=== PATIENT | female | born 1975 | race Two or more races ===

== ENCOUNTER 2023-10-27 18:17 | Inpatient (IN) | payer OTHER ==
[2023-10-27] MEDS ORDERED: NALOXONE (NARCAN) HCL 4 MG/0.1 ML SPRAY NS PRN (19:48)
[2023-10-27] MEDS ORDERED: MAG HYDROX/AL HYDROX/SIMETH 30 ML UNIT-DOSE CUP PO PRN (19:48)
[2023-10-27] MEDS ORDERED: POLYETHYLENE GLYCOL (HEALTHYLAX) 3350 17 GM PACKET PO PRN (19:48)
[2023-10-27] MEDS ORDERED: guaiFENesin 600 MG TABLET.ER (FP) PO PRN (19:48)
[2023-10-27] MEDS ORDERED: LOPERAMIDE HCL 2 MG CAPSULE PO PRN (19:48)
[2023-10-27] MEDS ORDERED: NALOXONE HCL 0.4 MG/ML VIAL IM PRN (19:48)
[2023-10-27] MEDS ORDERED: BENZONATATE 200 MG CAPSULE PO PRN (19:48)
[2023-10-27] MEDS ORDERED: BENZOCAINE/MENTHOL (CHLORASEPTIC ) LOZENGE MM PRN (19:48)
[2023-10-27] MEDS ORDERED: MAGNESIUM HYDROX 2400MG/30ML ORAL SUSPENSION 30 ML CUP PO PRN (19:48)
[2023-10-27] MEDS ORDERED: DICYCLOMINE HCL 10 MG CAPSULE PO PRN (19:48)
[2023-10-27] MEDS ORDERED: ONDANSETRON *ODT* 4 MG TABLET SL PRN (19:48)
[2023-10-27] MEDS ORDERED: BISMUTH SUBSALICYLATE 524 MG/30 ML PO PRN (19:48)
[2023-10-27] MEDS ORDERED: methaDONE HCL 10 MG TABLET (FOR DETOX USE ONLY) ONE (20:06)
[2023-10-27] MEDS: methaDONE HCL 10 MG TABLET (FOR DETOX USE ONLY) PO ONE (20:09)
[2023-10-27 20:11] VITALS: BMI 20.8
[2023-10-27] MEDS: THIAMINE 100 MG TABLET PO SCH (21:38)
[2023-10-27] MEDS: MELATONIN 5 MG TABLETS PO SCH (21:38)
[2023-10-28] MEDS: PRENATAL VITAMINS W/ FOLIC ACID TABLET (FP) PO SCH (09:33)
[2023-10-28] MEDS: cloNIDine HCL 0.1 MG TABLET PO PRN (09:33)
[2023-10-28] MEDS: NICOTINE 14 MG/24 HOURS TOPICAL PATCH TD SCH (09:35)
[2023-10-28 12:24] LABS: HEMATOCRIT 28.4 % (32.4-45.2); HEMOGLOBIN 8.6 GM/dL (10.7-15.3); MCH 20.5 pg (25.7-33.7); MCHC 30.5 g/dl (32.0-36.0); MEAN CELL VOLUME 67.4 fl (80-96); MEAN PLT VOLUME 8.1 fl (7.5-11.1); PLATELET COUNT 308 10^3/uL (134-434); RBC 4.21 M/mm3 (3.60-5.2); RDW 18.2 % (11.6-15.6); WHITE BLOOD COUNT 5.7 K/mm3 (4.0-10.0)
[2023-10-28 12:25] LABS: CHLORIDE 106 mmol/L (98-107); POTASSIUM 3.8 mmol/L (3.5-5.1); SODIUM 140 mmol/L (136-145)
[2023-10-28 12:27] LABS: ALBUMIN 2.9 g/dl (3.4-5.0); ANION GAP 8 mmol/L (4-13); BLOOD UREA NITROGEN 9.3 mg/dL (7-18); CALCIUM 8.7 mg/dL (8.5-10.1); CO2 26 mmol/L (21-32); GLUCOSE,RANDOM 132 mg/dL (74-106)
[2023-10-28 12:31] LABS: CREATININE 0.6 mg/dL (0.55-1.3); SGOT/AST 29 U/L (15-37); SGPT/ALT 32 U/L (13-61)
[2023-10-28 12:32] LABS: BILIRUBIN,TOTAL 0.4 mg/dL (0.2-1); TOT PROT 6.9 g/dl (6.4-8.2)
[2023-10-28 12:33] LABS: ALK PHOS 82 U/L (45-117)
[2023-10-28] MEDS: diazePAM 5 MG TABLET PO PRN (12:43)
[2023-10-29] MEDS ORDERED: methaDONE HCL 10 MG TABLET PO PRN (10:00)
[2023-10-29] MEDS ORDERED: methaDONE HCL 10 MG TABLET (FOR DETOX USE ONLY) PO ONE (10:00)
[2023-10-29] MEDS: methaDONE HCL 10 MG TABLET PO ONE (10:09)
[2023-10-29] MEDS: METHOCARBAMOL 500 MG TABLET PO PRN (14:59)
[2023-10-30] MEDS: methaDONE 40 MG, methaDONE 10 MG PO ONE (09:08)
[2023-10-31] MEDS: methaDONE 40 MG, methaDONE 20 MG PO ONE (09:18)
[2023-10-31] MEDS ORDERED: methaDONE HCL 10 MG TABLET (FOR DETOX USE ONLY) PO ONE (10:00)
[2023-10-31] MEDS: hydrOXYzine PAMOATE 25 MG CAPSULE (FP) PO PRN (12:03)
[2023-10-31] MEDS: metroNIDAZOLE 500 MG TABLET PO ONE ×2 (13:23→14:50)
[2023-10-31] MEDS: ACETAMINOPHEN 325 MG TABLET (FP) PO PRN (14:50)
[2023-10-31] MEDS: FERROUS SO4 325 MG TABLET (FP) PO SCH (14:50)
[2023-10-31] MEDS: diazePAM 5 MG TABLET PO PRN (21:56)
[2023-10-31] MEDS: DOCUSATE SODIUM 100 MG CAPSULE (FP) PO SCH (21:56)
[2023-11-01] MEDS: methaDONE 40 MG, methaDONE 30 MG PO ONE (09:38)
[2023-11-01] MEDS: IBUPROFEN 600 MG TABLET (FP) PO PRN (16:53)
[2023-11-01] MEDS: IBUPROFEN 400 MG TABLET (FP) PO PRN (21:56)
[2023-11-02] MEDS: methaDONE HCL 40 MG DISPERSABLE TABLET PO ONE (09:25)
[2023-11-02] MEDS: BENZOCAINE 20 % GEL TUBE MM PRN (14:56)
[2023-11-03 09:35] VITALS: RESP 18
[2023-11-03] MEDS ORDERED: methaDONE 80 MG, methaDONE 10 MG PO ONE (10:00)
[2023-11-03] MEDS: methaDONE HCL 40 MG DISPERSABLE TABLET PO SCH (10:01)
[2023-11-03] MEDS: methaDONE HCL 10 MG TABLET PO SCH (10:03)
[2023-11-03 12:55] VITALS: BP 123/64; PULSE 101; TEMP 97.8
== END 2023-11-03 12:51 | disposition other institution (70) | DRG 897 ==
LOC: YASAS 18:17 → Y3N 19:36
PROVIDERS: ADMIT Allergy & Immunology; ATTEND Family Medicine Addiction Medicine
PROC: HZ2ZZZZ Detoxification Services for Substance Abuse Treatment (ICD-10-PCS; principal; 2023-10-27)
DX: F11.23 Opioid dependence with withdrawal (principal); F14.20 Cocaine dependence, uncomplicated; Z59.00 Homelessness unspecified; F15.10 Other stimulant abuse, uncomplicated; F12.20 Cannabis dependence, uncomplicated; F17.210 Nicotine dependence, cigarettes, uncomplicated; F20.9 Schizophrenia, unspecified; F31.9 Bipolar disorder, unspecified; F41.9 Anxiety disorder, unspecified; F43.10 Post-traumatic stress disorder, unspecified; D64.9 Anemia, unspecified; M15.9 Polyosteoarthritis, unspecified; M54.50 Low back pain, unspecified; G89.29 Other chronic pain; Z56.0 Unemployment, unspecified; Z88.2 Allergy status to sulfonamides
CPT/HCPCS: 36415; 80053; 80305; 80307; 85027; 86780; 87811; 93005; 93010

== ENCOUNTER 2023-11-03 12:56 | Inpatient (IN) | payer OTHER ==
[2023-11-03] MEDS ORDERED: guaiFENesin 600 MG TABLET.ER (FP) PO PRN (14:34)
[2023-11-03] MEDS ORDERED: MAGNESIUM HYDROX 2400MG/30ML ORAL SUSPENSION 30 ML CUP PO PRN (14:34)
[2023-11-03] MEDS ORDERED: NICOTINE POLACRILEX 2 MG GUM BUC PRN (14:34)
[2023-11-03] MEDS ORDERED: BENZONATATE 200 MG CAPSULE PO PRN (14:34)
[2023-11-03] MEDS ORDERED: POLYETHYLENE GLYCOL (HEALTHYLAX) 3350 17 GM PACKET PO PRN (14:34)
[2023-11-03] MEDS ORDERED: ACETAMINOPHEN 325 MG TABLET (FP) PO PRN (14:34)
[2023-11-03] MEDS ORDERED: LOPERAMIDE HCL 2 MG CAPSULE PO PRN (14:34)
[2023-11-03] MEDS ORDERED: NALOXONE (NARCAN) HCL 4 MG/0.1 ML SPRAY NS PRN (14:34)
[2023-11-03] MEDS ORDERED: BENZOCAINE/MENTHOL (CHLORASEPTIC ) LOZENGE MM PRN (14:34)
[2023-11-03] MEDS ORDERED: IBUPROFEN 400 MG TABLET (FP) PO PRN (14:34)
[2023-11-03] MEDS ORDERED: NICOTINE POLACRILEX 2 MG LOZENGE BC PRN (14:34)
[2023-11-03] MEDS ORDERED: NALOXONE HCL 0.4 MG/ML VIAL IVPUSH PRN (14:34)
[2023-11-03] MEDS ORDERED: MAG HYDROX/AL HYDROX/SIMETH 30 ML UNIT-DOSE CUP PO PRN (14:34)
[2023-11-03] MEDS ORDERED: DOCUSATE SODIUM 100 MG CAPSULE (FP) PO PRN (14:37)
[2023-11-03] MEDS: METHOCARBAMOL 500 MG TABLET PO PRN (16:27)
[2023-11-03] MEDS: hydrOXYzine PAMOATE 25 MG CAPSULE (FP) PO PRN (16:28)
[2023-11-03] MEDS: MELATONIN 5 MG TABLETS PO SCH (21:18)
[2023-11-03] MEDS: THIAMINE 100 MG TABLET PO SCH (21:18)
[2023-11-03] MEDS ORDERED: FERROUS SO4 325 MG TABLET (FP) PO SCH (22:00)
[2023-11-04] MEDS: methaDONE HCL 40 MG DISPERSABLE TABLET PO SCH (06:30)
[2023-11-04 06:58] VITALS: PULSE 82
[2023-11-04 07:56] VITALS: BP 114/77; RESP 16; TEMP 98
[2023-11-04] MEDS: PRENATAL VITAMINS W/ FOLIC ACID TABLET (FP) PO SCH (10:02)
[2023-11-04] MEDS: NICOTINE 7 MG/24 HOURS TOPICAL PATCH TD SCH (10:02)
[2023-11-04] MEDS: FERROUS SO4 325 MG TABLET (FP) PO SCH (10:06)
[2023-11-04] MEDS: IBUPROFEN 600 MG TABLET (FP) PO PRN (10:44)
== END 2023-11-04 13:00 | disposition home or self-care (01) | DRG 895 ==
LOC: YASAS 12:56 → Y5N 12:58
PROVIDERS: ADMIT Psychiatry & Neurology Pain Medicine; ATTEND Psychiatry & Neurology Pain Medicine
PROC: HZ42ZZZ Group Counseling for Substance Abuse Treatment, Cognitive-Behavioral (ICD-10-PCS; principal; 2023-11-03)
DX: F11.20 Opioid dependence, uncomplicated (principal); F14.20 Cocaine dependence, uncomplicated; F15.20 Other stimulant dependence, uncomplicated; F12.20 Cannabis dependence, uncomplicated; F17.210 Nicotine dependence, cigarettes, uncomplicated; F20.9 Schizophrenia, unspecified; F31.9 Bipolar disorder, unspecified; F41.9 Anxiety disorder, unspecified; F43.10 Post-traumatic stress disorder, unspecified; J45.909 Unspecified asthma, uncomplicated; M15.9 Polyosteoarthritis, unspecified; M54.50 Low back pain, unspecified; G89.29 Other chronic pain; Z88.2 Allergy status to sulfonamides
CPT/HCPCS: 80305

== ENCOUNTER 2023-11-11 00:26 | Inpatient (IN) | payer OTHER ==
[2023-11-11 00:43] VITALS: BMI 23.8
[2023-11-11] MEDS: VANCOMYCIN 1,000 MG in DEXTROSE 5%-WATER - 250 ML IVPB ONE (01:00)
[2023-11-11] MEDS ORDERED: ACETAMINOPHEN INJECTION 100 ML ONE (01:28)
[2023-11-11] MEDS: ACETAMINOPHEN 1000 MG/100 ML BAG IVPB ONE (02:05)
[2023-11-11] MEDS ORDERED: BUPRENORPHINE/NALOXONE 2 MG/0.5 MG FILM PACKET ONE (02:07)
[2023-11-11 02:09] LABS: HEMOGLOBIN 9.4 GM/dL (10.7-15.3); MCH 22.5 pg (25.7-33.7); MCHC 31.4 g/dl (32.0-36.0); MEAN CELL VOLUME 71.8 fl (80-96); MEAN PLT VOLUME 7.3 fl (7.5-11.1); PLATELET COUNT 327 10^3/uL (134-434); RBC 4.18 M/mm3 (3.60-5.2); RDW 26.8 % (11.6-15.6); WHITE BLOOD COUNT 9.3 K/mm3 (4.0-10.0)
[2023-11-11] MEDS ORDERED: PIPERACILLIN/TAZOB 3.375 GM 3.375 GM/50 ML BAG IVPB ONE (02:09)
[2023-11-11] MEDS: PIPERACILLIN/TAZOB 3.375 GM 3.375 GM in DEXTROSE 5%-WATER - 50 ML IVPB ONE (02:17)
[2023-11-11] MEDS: BUPRENORPHINE/NALOXONE 4 MG/1 MG FILM PACKET SL ONE (02:17)
[2023-11-11] MEDS: LORazepam 2 MG/ML SDV VIAL IM ONE ×2 (02:50→06:11)
[2023-11-11] MEDS ORDERED: HALOPERIDOL LACTATE 5 MG/ML ONE ×2 (02:56→10:14)
[2023-11-11 02:57] LABS: POTASSIUM 3.7 mmol/L (3.5-5.1)
[2023-11-11 03:00] LABS: ALBUMIN 3.2 g/dl (3.4-5.0); BLOOD UREA NITROGEN 8.1 mg/dL (7-18)
[2023-11-11] MEDS: HALOPERIDOL LACTATE 5 MG/ML IM ONE ×2 (03:00→11:25)
[2023-11-11 03:03] LABS: CREATININE 0.7 mg/dL (0.55-1.3)
[2023-11-11 03:04] LABS: BILIRUBIN,TOTAL 0.7 mg/dL (0.2-1); TOT PROT 7.8 g/dl (6.4-8.2)
[2023-11-11] MEDS ORDERED: MIDAZOLAM HCL 5 MG/1 ML Single Dose Vial ONE (03:13)
[2023-11-11] MEDS: MIDAZOLAM HCL 5 MG/1 ML Single Dose Vial IVPUSH ONE (03:20)
[2023-11-11] MEDS: MIDAZOLAM HCL 5 MG/1 ML Single Dose Vial IM ONE (03:39)
[2023-11-11] MEDS ORDERED: DALBAVANCIN HCL 1,500 MG in DEXTROSE 5%-WATER - 500 ML IVPB ONE (07:40)
[2023-11-11] MEDS ORDERED: clonazePAM 0.5 MG ODT TABLETS SL PRN (09:53)
[2023-11-11] MEDS ORDERED: clonazePAM 0.25 MG ODT TABLETS SL PRN (10:12)
[2023-11-11] MEDS ORDERED: ACETAMINOPHEN 1000 MG/100 ML BAG IVPB PRN (10:41)
[2023-11-11] MEDS ORDERED: methaDONE HCL 10 MG TABLET ONE (11:02)
[2023-11-11] MEDS: methaDONE HCL 10 MG TABLET PO ONE (11:25)
[2023-11-11 13:06] LABS: HEMATOCRIT 33.7 % (32.4-45.2); HEMOGLOBIN 10.5 GM/dL (10.7-15.3); MCH 22.5 pg (25.7-33.7); MCHC 31.2 g/dl (32.0-36.0); MEAN CELL VOLUME 72.1 fl (80-96); MEAN PLT VOLUME 7.7 fl (7.5-11.1); PLATELET COUNT 353 10^3/uL (134-434); RBC 4.67 M/mm3 (3.60-5.2); WHITE BLOOD COUNT 8.6 K/mm3 (4.0-10.0)
[2023-11-11 13:26] LABS: POTASSIUM 3.7 mmol/L (3.5-5.1)
[2023-11-11 13:28] LABS: CALCIUM 9.4 mg/dL (8.5-10.1)
[2023-11-11 13:29] LABS: ALBUMIN 3.4 g/dl (3.4-5.0); BLOOD UREA NITROGEN 7.3 mg/dL (7-18)
[2023-11-11 13:31] LABS: CREATININE 0.5 mg/dL (0.55-1.3)
[2023-11-11 13:33] LABS: BILIRUBIN,TOTAL 0.7 mg/dL (0.2-1)
[2023-11-12] MEDS: PIPERACILLIN/TAZOB 3.375 GM 3.375 GM in DEXTROSE 5%-WATER - 50 ML IVPB SCH (02:59)
[2023-11-12] MEDS: VANCOMYCIN/WATER FOR INJ (PEG) 1,000 MG/200 ML BAG IVPB SCH (02:59)
[2023-11-12 06:35] LABS: URINE BARBITURATES NEGATIVE (NEGATIVE)
[2023-11-12 06:36] LABS: PHENCYCLIDINE,URINE NEGATIVE (NEGATIVE)
[2023-11-12 07:06] LABS: COCAINE, UR POSITIVE (NEGATIVE); METHADONE, UR POSITIVE (NEGATIVE); OPIATES, URI POSITIVE (NEGATIVE); URINE AMPHETAMINES POSITIVE (NEGATIVE); URINE BENZODIAZEPINES POSITIVE (NEGATIVE)
[2023-11-13] MEDS: methaDONE HCL 10 MG TABLET PO ONE (09:13)
[2023-11-13] MEDS: cloNIDine HCL 0.1 MG TABLET PO PRN (11:19)
[2023-11-13] MEDS: NICOTINE 21 MG/24 HOURS TOPICAL PATCH TD SCH (11:19)
[2023-11-13] MEDS: ENOXAPARIN NA (PORCINE) 40 MG/0.4 ML DISP.SYRIN SQ SCH (12:09)
[2023-11-13] MEDS: HALOPERIDOL LACTATE 5 MG/ML IM ONE ×2 (12:10)
[2023-11-13] MEDS: ACETAMINOPHEN 325 MG TABLET (FP) PO PRN (16:49)
[2023-11-13] MEDS: MELATONIN 5 MG TABLETS PO PRN (21:06)
[2023-11-14 09:20] LABS: BASO % 1.2 % (0-2.0); EOS % 3.2 % (0-4.5); HEMATOCRIT 35.3 % (32.4-45.2); HEMOGLOBIN 10.8 GM/dL (10.7-15.3); MCH 22.6 pg (25.7-33.7); MCHC 30.5 g/dl (32.0-36.0); MEAN PLT VOLUME 7.7 fl (7.5-11.1); MONO % 8.2 % (3.8-10.2); NEUT % 39.4 % (42.8-82.8); PLATELET COUNT 379 10^3/uL (134-434); RBC 4.78 M/mm3 (3.60-5.2); RDW 26.5 % (11.6-15.6); WHITE BLOOD COUNT 4.6 K/mm3 (4.0-10.0)
[2023-11-14 09:32] LABS: POTASSIUM 4.3 mmol/L (3.5-5.1)
[2023-11-14 09:39] LABS: MAGNESIUM 2.1 mg/dL (1.8-2.4)
[2023-11-14 09:40] LABS: BLOOD UREA NITROGEN 8.7 mg/dL (7-18); CREATININE 0.6 mg/dL (0.55-1.3)
[2023-11-14 09:42] LABS: BILIRUBIN,TOTAL 0.4 mg/dL (0.2-1); TOT PROT 7.4 g/dl (6.4-8.2)
[2023-11-14 10:16] LABS: ANISOCYTOSIS 2+; MACROCYTOSIS 0
[2023-11-14] MEDS: cloNIDine HCL 0.1 MG TABLET PO ONE (12:01)
[2023-11-14] MEDS: VANCOMYCIN/WATER 1250 MG 1,250 MG/250 ML BAG IVPB SCH (14:09)
[2023-11-14] MEDS: cloNIDine HCL 0.1 MG TABLET PO PRN (16:08)
[2023-11-14] MEDS: LIDOCAINE 1%/EPI 1:100000 (20 ML MULTI DOSE VIAL) IJ ONE (17:41)
[2023-11-15 04:51] VITALS: TEMP 98.4
[2023-11-15] MEDS: methaDONE HCL 10 MG TABLET PO ONE (09:48)
[2023-11-15 11:09] LABS: BASO % 1.5 % (0-2.0); EOS % 1.4 % (0-4.5); HEMOGLOBIN 10.2 GM/dL (10.7-15.3); LYMPH % 38.3 % (8-40); MCH 22.5 pg (25.7-33.7); MCHC 30.8 g/dl (32.0-36.0); MEAN CELL VOLUME 73.2 fl (80-96); MEAN PLT VOLUME 7.8 fl (7.5-11.1); MONO % 11.2 % (3.8-10.2); NEUT % 47.6 % (42.8-82.8); PLATELET COUNT 373 10^3/uL (134-434); RBC 4.51 M/mm3 (3.60-5.2); RDW 26.1 % (11.6-15.6); WHITE BLOOD COUNT 4.7 K/mm3 (4.0-10.0)
[2023-11-15 11:38] LABS: POTASSIUM 4.5 mmol/L (3.5-5.1)
[2023-11-15 11:44] LABS: CALCIUM 9.1 mg/dL (8.5-10.1)
[2023-11-15 11:45] LABS: ALBUMIN 2.8 g/dl (3.4-5.0); BLOOD UREA NITROGEN 9.1 mg/dL (7-18); MAGNESIUM 2.1 mg/dL (1.8-2.4)
[2023-11-15 11:47] LABS: CREATININE 0.7 mg/dL (0.55-1.3)
[2023-11-15 11:50] LABS: BILIRUBIN,TOTAL 0.3 mg/dL (0.2-1); TOT PROT 6.8 g/dl (6.4-8.2)
[2023-11-15 16:26] VITALS: BP 98/59; PULSE 77; RESP 18
[2023-11-15] MEDS ORDERED: CLINDAMYCIN HCL 150 MG CAPSULE (FP) PO SCH (18:00)
== END 2023-11-15 17:12 | disposition home or self-care (01) | DRG 383 ==
LOC: JER 00:26 → JERBED 05:51 → INTOOBSV 05:51 → OBSVTOIN 05:51 → UNDOADMOB 05:51 → J7W 19:25 → JERBED 19:25 → J8W 21:37 → J7W 21:37 → JERBED 11-13 07:52 → OBSVTOIN 11-13 07:52 → J8W 11-13 07:52 → J7W 11-13 07:52
PROVIDERS: ADMIT Internal Medicine; ATTEND Nurse Practitioner Family
PROC: 0Y900ZZ Drainage of Right Buttock, Open Approach (ICD-10-PCS; principal; 2023-11-13)
DX: L02.415 Cutaneous abscess of right lower limb (principal); L03.115 Cellulitis of right lower limb; L02.31 Cutaneous abscess of buttock; F20.9 Schizophrenia, unspecified; F11.23 Opioid dependence with withdrawal; A49.02 Methicillin resistant Staphylococcus aureus infection, unspecified site; F31.9 Bipolar disorder, unspecified; J45.909 Unspecified asthma, uncomplicated; D64.9 Anemia, unspecified; M54.89 Other dorsalgia; F17.210 Nicotine dependence, cigarettes, uncomplicated; F41.9 Anxiety disorder, unspecified; F14.10 Cocaine abuse, uncomplicated; F12.10 Cannabis abuse, uncomplicated
CPT/HCPCS: 36415; 80053; 80305; 80307; 83735; 84703; 85025; 85027; 87040; 87070; 87186; 87205; 93005; 93010; 99285-25; G0480; J0131

== ENCOUNTER 2023-12-21 10:20 | Inpatient (IN) | payer OTHER ==
[2023-12-21 10:45] VITALS: BMI 23.6
[2023-12-21] MEDS ORDERED: BENZONATATE 200 MG CAPSULE PO PRN (11:13)
[2023-12-21] MEDS ORDERED: guaiFENesin 600 MG TABLET.ER (FP) PO PRN (11:13)
[2023-12-21] MEDS ORDERED: LOPERAMIDE HCL 2 MG CAPSULE PO PRN (11:13)
[2023-12-21] MEDS ORDERED: DICYCLOMINE HCL 10 MG CAPSULE PO PRN (11:13)
[2023-12-21] MEDS ORDERED: NICOTINE POLACRILEX 2 MG LOZENGE BC PRN (11:13)
[2023-12-21] MEDS ORDERED: ACETAMINOPHEN 325 MG TABLET (FP) PO PRN (11:13)
[2023-12-21] MEDS ORDERED: NALOXONE (NYS OPIOID OVERDOSE PROGRAM) 4 MG/0.1 ML SPRAY NS PRN (11:13)
[2023-12-21] MEDS ORDERED: POLYETHYLENE GLYCOL (HEALTHYLAX) 3350 17 GM PACKET PO PRN (11:13)
[2023-12-21] MEDS ORDERED: MAGNESIUM HYDROX 2400MG/30ML ORAL SUSPENSION 30 ML CUP PO PRN (11:13)
[2023-12-21] MEDS ORDERED: NALOXONE (NARCAN) HCL 4 MG/0.1 ML SPRAY NS PRN (11:13)
[2023-12-21] MEDS ORDERED: BENZOCAINE/MENTHOL (CHLORASEPTIC ) LOZENGE MM PRN (11:13)
[2023-12-21] MEDS ORDERED: ONDANSETRON *ODT* 4 MG TABLET SL PRN (11:13)
[2023-12-21] MEDS ORDERED: IBUPROFEN 400 MG TABLET (FP) PO PRN (11:13)
[2023-12-21] MEDS ORDERED: methaDONE HCL 10 MG TABLET (FOR DETOX USE ONLY) ONE (12:07)
[2023-12-21] MEDS: methaDONE HCL 10 MG TABLET PO ONE (12:11)
[2023-12-21] MEDS: THIAMINE 100 MG TABLET PO SCH (22:04)
[2023-12-21] MEDS: METHOCARBAMOL 500 MG TABLET PO PRN (22:04)
[2023-12-21] MEDS: MELATONIN 5 MG TABLETS PO SCH (22:04)
[2023-12-22] MEDS: methaDONE HCL 40 MG DISPERSABLE TABLET PO ONE (08:44)
[2023-12-22] MEDS: PRENATAL VITAMINS W/ FOLIC ACID TABLET (FP) PO SCH (09:48)
[2023-12-22] MEDS ORDERED: methaDONE HCL 40 MG DISPERSABLE TABLET PO ONE (10:00)
[2023-12-22] MEDS: cloNIDine HCL 0.1 MG TABLET PO PRN (22:23)
[2023-12-23] MEDS: methaDONE 40 MG, methaDONE 10 MG PO ONE (09:27)
[2023-12-23] MEDS: IBUPROFEN 600 MG TABLET (FP) PO PRN (09:28)
[2023-12-23] MEDS: diazePAM 5 MG TABLET PO PRN (11:21)
[2023-12-23] MEDS: hydrOXYzine PAMOATE 25 MG CAPSULE (FP) PO PRN (12:11)
[2023-12-23] MEDS: LIDOCAINE 5% TOPICAL PATCH TP SCH (12:54)
[2023-12-23] MEDS: NICOTINE POLACRILEX 2 MG GUM BUC PRN (14:58)
[2023-12-23] MEDS: NICOTINE 21 MG/24 HOURS TOPICAL PATCH TD SCH (15:23)
[2023-12-23] MEDS: LIDOCAINE PATCH REMOVAL MC SCH (22:21)
[2023-12-24] MEDS: diazePAM 5 MG TABLET PO PRN (11:25)
[2023-12-25] MEDS: methaDONE 40 MG, methaDONE 20 MG PO ONE (09:09)
[2023-12-25] MEDS: BENZOCAINE 28 GM HEMORRHOIDAL OINTMENT RC ONE (17:11)
[2023-12-25] MEDS: BISMUTH SUBSALICYLATE 262 MG/15 ML BTL PO PRN (17:12)
[2023-12-26] MEDS: MAG HYDROX/AL HYDROX/SIMETH 30 ML UNIT-DOSE CUP PO PRN (10:24)
[2023-12-26 17:01] VITALS: BP 118/87; PULSE 99; RESP 17; TEMP 98.7
== END 2023-12-27 03:29 | disposition short-term general hospital (02) | DRG 897 ==
LOC: YASAS 10:20 → Y6N 12:13
PROVIDERS: ADMIT Allergy & Immunology; ATTEND Surgery
PROC: HZ2ZZZZ Detoxification Services for Substance Abuse Treatment (ICD-10-PCS; principal; 2023-12-21)
DX: F11.23 Opioid dependence with withdrawal (principal); F14.20 Cocaine dependence, uncomplicated; Z59.00 Homelessness unspecified; F17.210 Nicotine dependence, cigarettes, uncomplicated; F20.9 Schizophrenia, unspecified; F31.9 Bipolar disorder, unspecified; F44.81 Dissociative identity disorder; F43.10 Post-traumatic stress disorder, unspecified; F41.9 Anxiety disorder, unspecified; J45.909 Unspecified asthma, uncomplicated; M19.90 Unspecified osteoarthritis, unspecified site; M54.50 Low back pain, unspecified; G89.29 Other chronic pain; Z56.0 Unemployment, unspecified; Z88.2 Allergy status to sulfonamides
CPT/HCPCS: 80305; 80307; 81025